=== PATIENT | female | born 1980 | race Caucasian/White ===

== ENCOUNTER 2024-04-22 06:43 | Outpatient (REF) | payer BC, SELFPAY ==
--- NOTE | ~2024-04-22 | US_ITS ---
EXAMINATION: ULTRASOUND PELVIC, COMPLETE CLINICAL INFORMATION: Irregular menses. COMPARISON: None. TECHNIQUE: Transvaginal: Used to better visualize pelvic structures Transabdominal: Not adequate for visualization. Spectral Doppler and color Doppler exam was utilized. LMP: October 2023 FINDINGS: UTERUS: Uterus is retroverted and retroflexed. Uterus measures 7.6 x 4.5 x 3.8 cm. Endometrial thickness 0.6 cm ADNEXA: Ovarian vascularity:Doppler demonstrates both arterial and venous vascular flow in the right and left ovary. No evidence of ovarian torsion. Right Ovary: 2.2 x 1.4 x 2.3 cm. Volume 3.7 mL Left Ovary: Dominant follicle measuring 1.3 cm. Left ovary measures 2.1 x 1.4 x 2.6 cm. Volume 4.1 mL Cul-de-sac: No Fluid US/US pelvic and transvaginal IMPRESSION: Normal ultrasound of the pelvis.
== END 2024-04-22 06:44 | disposition home or self-care (01) ==
LOC: HO.UMASIMG 06:43
PROVIDERS: Visit Provider Registered Nurse
DX: N92.6 Irregular menstruation, unspecified (principal); R79.89 Other specified abnormal findings of blood chemistry
CPT/HCPCS: 76830; 76856